=== PATIENT | male | born 1980 | race Caucasian/White ===

== ENCOUNTER 2022-09-29 20:24 | Emergency (ER) | payer BC ==
[2022-09-29] MEDS ORDERED: Ondansetron 4 MG Tab.DIS PO ONE (20:49)
[2022-09-29] MEDS ORDERED: LORazepam 1 MG Tab PO ONE ×2 (20:49→21:48)
[2022-09-29 21:00] LABS: BASOPHILS ABSOLUTE AUTO 0.01 K/mm3 (0.01-0.08); BASOPHILS PERCENT AUTO 0.1 % (0.1-1.2); EOSINOPHILS ABSOLUTE AUTO 0.01 K/mm3 (0.04-0.54); EOSINOPHILS PERCENT AUTO 0.1 (0.8-7.0); HEMATOCRIT 42.7 % (40.1-51.0); HEMOGLOBIN 15.4 gm/dl (13.7-17.5); IMMATURE GRAN ABSOLUTE AUTO 0.02 K/mm3 (0.00-0.10); IMMATURE GRAN PERCENT AUTO 0.2 % (<=1.0); LYMPHOCYTES ABSOLUTE AUTO 0.55 K/mm3 (1.32-3.57); LYMPHOCYTES PERCENT AUTO 5.7 % (21.8-53.1); MEAN CORPUSCULAR HEMOGLOBIN 29.3 pg (25.7-32.2); MEAN CORPUSCULAR HGB CONC 36.1 g/dl (32.2-35.5); MEAN CORPUSCULAR VOLUME 81.2 fl (79.0-92.2); MEAN PLATELET VOLUME 9.7 fl (9.4-12.3); MONOCYTES ABSOLUTE AUTO 0.67 K/mm3 (0.30-0.82); NEUTROPHILS ABSOLUTE AUTO 8.31 K/mm3 (1.78-5.38); NEUTROPHILS PERCENT AUTO 86.9 % (34.0-67.9); PLATELET COUNT,PLT 188 K/mm3 (163-337); RED BLOOD CELL COUNT 5.26 M/mm3 (4.63-6.08); WHITE BLOOD CELL COUNT,WBC 9.57 K/mm3 (4.23-9.07)
[2022-09-29 21:18] LABS: INR 1.01; PROTHROMBIN TIME 10.8 SECONDS (9.7-12.0)
[2022-09-29 21:31] LABS: A/G RATIO 1.2 (1-2); ANION GAP 16.9 (5-15); BILIRUBIN TOTAL 1.1 mg/dL (0.2-1.0); BUN/CREATININE RATIO 13.8 (14-18); CALCIUM 9.3 mg/dL (8.5-10.1); CREATININE 1.3 mg/dL (0.7-1.3); EST CRCL DRUG DOSING (CG) 85.36 mL/min; MAGNESIUM 1.5 mg/dL (1.8-2.4); POTASSIUM,K 3.9 mEq/L (3.5-5.1); PROTEIN TOTAL,TP 7.4 g/dl (6.4-8.2)
== END 2022-09-29 22:00 | disposition home or self-care (01) ==
LOC: JD.ED 20:24
DX: R07.89 Other chest pain (principal); F41.9 Anxiety disorder, unspecified; R20.0 Anesthesia of skin; I10 Essential (primary) hypertension
CPT/HCPCS: 36415; 71045; 80053; 83735; 83880; 84484; 85025; 85610; 85730; 93005; 99285; A9270; 93010; 99283